=== PATIENT | female | born 1955 | race Caucasian/White ===

== ENCOUNTER 2017-11-23 17:40 | Emergency (ER) | payer OTHER ==
[~2017-11-23] VITALS: Ht 154.9 cm; Wt 56.7 kg
[2017-11-23] MEDS ORDERED: PREDNISONE 20 M20 MG PO (18:52)
[2017-11-23] MEDS ORDERED: FLEXERIL PO (18:52)
[2017-11-23] MEDS ORDERED: HYDROCODONE-AP1 EAC6 PO (18:52)
[2017-11-23 19:00] VITALS: BP 128/65
== END 2017-11-23 19:00 | disposition home or self-care (01) ==
LOC: M.ERS 17:40
DX: M54.32 Sciatica, left side (principal); Z88.6 Allergy status to analgesic agent

== ENCOUNTER 2021-04-12 12:33 | Emergency (ER) | payer OTHER ==
[~2021-04-12] VITALS: Ht 154.9 cm; Wt 52.2 kg
[~2021-04-12 12:33] MED LIST: FLEXERIL PO; HYDROCODONE-AP1 EAC6 PO; PREDNISONE 20 M20 MG PO
[2021-04-12 14:01] LABS: ABSOLUTE BASOPHILS 0.1 thou/uL (0.0-0.2); ABSOLUTE EOSINOPHILS 0.3 thou/uL (0.0-0.7); ABSOLUTE MONOCYTES 0.7 thou/uL (0.0-1.2); ABSOLUTE NEUTROPHILS 5.8 thou/uL (1.6-8.1); BASOPHILS 0.9 %; EOSINOPHILS 3.4 %; HEMATOCRIT 38.7 % (37.0-47.0); LYMPHOCYTES 12.3 %; MCH 29.3 pg (26.0-34.0); MCHC 33.7 g/dL (28.0-37.0); MCV 86.9 fL (80.0-100.0); MPV 7.5 fl. (7.2-11.1); NUCLEATED RBCS 0 /100WBC; PLATELET COUNT* 277 thou/uL (150-400); POLYS 74.4 %; RBC 4.46 mil/uL (4.20-5.00); WBC 7.8 thou/uL (4.0-11.0)
[2021-04-12 14:08] LABS: CALCIUM 8.4 mg/dL (8.5-10.1); CREATININE 0.9 mg/dL (0.6-1.3); POTASSIUM 3.9 mmol/L (3.5-5.1)
[2021-04-12 14:13] LABS: ALBUMIN 3.9 g/dL (3.4-5.0); TOTAL BILIRUBIN 0.2 mg/dL (<0.1-1.0); TOTAL PROTEIN 7.3 g/dL (6.4-8.2)
[2021-04-12] MEDS ORDERED: TESSALON PERLE100 MG PO (15:03)
[2021-04-12] MEDS ORDERED: PROAIR HFA8.5 GM INH (15:03)
[2021-04-12] MEDS ORDERED: ZPAK PO (15:03)
[2021-04-12] MEDS ORDERED: PREDNISONE 20 M20 MG PO (15:04)
[2021-04-12 15:12] VITALS: BP 124/54
--- NOTE | 2021-04-13 13:31 | EKG ---
[place] [address] ELECTROCARDIOGRAM REPORT Name: RODRIGUEZLOREN Room: [facility]#: [id number] Admission: 04/12/21 Attend Phys: Discharge: 04/12/21 Date of : 59 Date of Service: 04/12/21 1346 Report #: [id number] THIS REPORT FOR: //name// [facility] ED Test Date: 2021-04-12 Test Time: 13:46:39 Pat Name: LOREN RODRIGUEZ Department: Room: Gender: F [employer]visor Properties: SALAS : 1955 Requested By: Mustapha Guzmán Order Number: [id number] MD: Chase Palumbo Measurements Intervals [place] Rate: 74 P: 68 IA: 162 QRS: -9 QRSD: 94 T: 39 QT: 361 QTc: 401 Interpretive Statements Sinus rhythm Abnormal R-wave progression, early transition Baseline wander in lead(s) V4 No previous ECG available for comparison Electronically Signed On 04-13-2021 13:30:57 CDT by Chase Palumbo [email or web address] <ELECTRONICALLY SIGNED> By: Chase Palumbo MD, FACC 04/13/21 1330 1346 1346 Chase Palumbo MD, [facility] /EPI
== END 2021-04-12 15:13 | disposition home or self-care (01) ==
LOC: M.ERS 12:33
PROVIDERS: Physician Assistant
DX: J20.9 Acute bronchitis, unspecified (principal); Z20.822 Contact with and (suspected) exposure to COVID-19; Z88.1 Allergy status to other antibiotic agents